=== PATIENT | male | born 1975 | race Caucasian/White ===

== ENCOUNTER 2021-10-22 15:31 | Emergency (ER) | payer OTHER ==
[~2021-10-22] VITALS: Ht 182.9 cm; Wt 90.7 kg
[~2021-10-22 15:31] MED LIST: MOBIC7.5 M1 PO; NOHOMEMEDICATIONS; RESTORIL7.5 MG PO
[2021-10-22] MEDS ORDERED: HYDROCODON-ACE1 EAC7 PO (16:02)
[2021-10-22 16:06] VITALS: BP 114/84
[2021-10-22] MEDS ORDERED: IBUPROFEN 800800 M1 PO (16:06)
[2021-10-22] MEDS ORDERED: LOSARTAN-HCTZ1 EAC2 PO (16:10)
== END 2021-10-22 16:16 | disposition home or self-care (01) ==
LOC: M.ERS 15:31
DX: S62.316A Displaced fracture of base of fifth metacarpal bone, right hand, initial encounter for closed fracture (principal); Z90.89 Acquired absence of other organs; Z79.899 Other long term (current) drug therapy; Z88.0 Allergy status to penicillin; X58.XXXA Exposure to other specified factors, initial encounter; Y93.89 Activity, other specified; Y92.89 Other specified places as the place of occurrence of the external cause; Y99.8 Other external cause status